=== PATIENT | female | born 1935 | race Caucasian/White ===

== ENCOUNTER 2017-12-23 15:22 | Inpatient (IN) | payer OTHER ==
[~2017-12-23] VITALS: Ht 165.1 cm; Wt 68.0 kg
[~2017-12-23 15:22] MED LIST: ASA81 PO; GLIM2TAB2 PO; LEVO100T9 PO; METO50TA7 PO; PRAV20TA PO
[2017-12-23 15:26] VITALS: BP_SYST 145
[2017-12-23 16:15] LABS: BASOPHILS # (AUTO) 0.1 K/uL (0.0-0.2); BASOPHILS % (AUTO) 0.7 % (0.0-2.0); EOSINOPHILS # (AUTO) 0.5 K/uL (0.0-0.4); HEMATOCRIT 37.8 % (36-48); HEMOGLOBIN 12.6 g/dL (12.0-16.0); LYMPHOCYTES # (AUTO) 2.6 K/uL (1.0-5.5); LYMPHOCYTES % (AUTO) 28.7 % (20.5-51.5); MEAN CORPUSCULAR HEMOGLOBIN 32 pg (27-31); MEAN CORPUSCULAR HGB CONC 33 % (32-36); MEAN CORPUSCULAR VOLUME 96 fL (79.0-98.0); MONOCYTES # (AUTO) 0.9 K/uL (0.0-1.0); MONOCYTES % (AUTO) 9.5 % (1.7-9.3); NEUTROPHILS % (AUTO) 56.1 % (40.0-70.0); PLATELET COUNT (AUTO) 251 K/uL (130-430); RED BLOOD CELL COUNT(AUTO) 3.95 MIL/uL (4.2-6.2); RED CELL DISTRIBUTION WIDTH 12.3 % (9.0-15.0); WHITE BLOOD COUNT (AUTO) 9.1 K/uL (4.8-10.8)
[2017-12-23 16:23] LABS: ANION GAP 7 (5-15); CALCIUM 8.9 mg/dL (8.4-11.0); CHLORIDE 109 mmol/L (98-107); CREATININE 1.17 mg/dL (0.55-1.30); GLUCOSE 168 mg/dL (70-99); POTASSIUM 3.6 mmol/L (3.5-5.1); SODIUM SERUM 139 mmol/L (136-145); UREA NITROGEN, BLOOD 29 mg/dL (8-21)
[2017-12-23 16:26] LABS: PROTHROMBIN TIME 10.3 SECS (9.5-12.5)
[2017-12-23 16:28] LABS: ALANINE AMINOTRANSFERASE 23 U/L (12-78); ALBUMIN 3.7 g/dL (3.4-4.8); ASPARTATE AMINOTRANSFERASE 23 U/L (10-37); TOTAL BILIRUBIN 0.4 mg/dL (0.0-1.0)
[2017-12-23] MEDS ORDERED: ACETAMINOPHEN 325 MG TABLET PO PRN (18:45)
[2017-12-23] MEDS ORDERED: INSULIN ASPART 100 UNITS/ML, 10 ML VIAL (NovoLOG) SUBCUT PRN (18:45)
[2017-12-23] MEDS ORDERED: ONDANSETRON HCL 4 MG/2 ML VIAL IVP PRN (18:45)
[2017-12-23 19:15] VITALS: BP_SYST 151
[2017-12-23] MEDS ORDERED: SIMVASTATIN 40 MG TABLET PO SCH (21:00)
[2017-12-23] MEDS ORDERED: DOCUSATE SODIUM 100 MG CAPSULE PO SCH (21:00)
[2017-12-23 23:49] LABS: BILIRUBIN,URINE 1+ (NEGATIVE); BLOOD, URINE NEGATIVE (NEGATIVE); CLARITY/URINE SL HAZY (CLEAR); COLOR,URINE YELLOW (YELLOW); GLUCOSE,URINE NEGATIVE (NEGATIVE); KETONES,URINE TRACE (NEGATIVE); LEUKOCYTE ESTERASE ,URINE NEGATIVE (NEGATIVE); NITRITE, URINE NEGATIVE (NEGATIVE); PROTEIN URINE 1+ (NEGATIVE); UROBILINOGEN,URINE 0.2 (0.2-1.0)
[2017-12-23 23:58] LABS: BACTERIA,URINE FEW /HPF (None Seen); RBC,URINE 0-3 /HPF (0-3)
[2017-12-23 23:59] LABS: HYALINE CASTS, URINE 0-10 /LPF (None Seen); MUCUS,URINE 1+ /LPF (None Seen)
[2017-12-24 01:05] VITALS: BP_SYST 154
[2017-12-24 06:34] LABS: RED BLOOD CELL COUNT(AUTO) 3.84 MIL/uL (4.2-6.2)
[2017-12-24 06:35] LABS: BASOPHILS # (AUTO) 0.1 K/uL (0.0-0.2); BASOPHILS % (AUTO) 1.6 % (0.0-2.0); EOSINOPHILS # (AUTO) 0.4 K/uL (0.0-0.4); EOSINOPHILS % (AUTO) 5.5 % (0.0-4.0); HEMATOCRIT 36.9 % (36-48); HEMOGLOBIN 12.6 g/dL (12.0-16.0); LYMPHOCYTES # (AUTO) 3.3 K/uL (1.0-5.5); MEAN CORPUSCULAR HEMOGLOBIN 33 pg (27-31); MEAN CORPUSCULAR HGB CONC 34 % (32-36); MEAN CORPUSCULAR VOLUME 96 fL (79.0-98.0); MONOCYTES # (AUTO) 0.9 K/uL (0.0-1.0); NEUTROPHILS # (AUTO) 3.3 K/uL (1.8-7.7); NEUTROPHILS % (AUTO) 40.9 % (40.0-70.0); PLATELET COUNT (AUTO) 226 K/uL (130-430); RED CELL DISTRIBUTION WIDTH 12.5 % (9.0-15.0)
[2017-12-24 06:48] LABS: ANION GAP 6 (5-15); CALCIUM 8.7 mg/dL (8.4-11.0); CHLORIDE 110 mmol/L (98-107); CREATININE 0.98 mg/dL (0.55-1.30); GLUCOSE 84 mg/dL (70-99); POTASSIUM 3.6 mmol/L (3.5-5.1); SODIUM SERUM 143 mmol/L (136-145); UREA NITROGEN, BLOOD 28 mg/dL (8-21)
[2017-12-24 06:53] LABS: ALANINE AMINOTRANSFERASE 21 U/L (12-78); ALBUMIN 3.3 g/dL (3.4-4.8); ASPARTATE AMINOTRANSFERASE 24 U/L (10-37); CHOLESTEROL 184 mg/dL (<200); HDL CHOLESTEROL 76 mg/dL (>55); LDL CHOLESTEROL 96 mg/dL (<100); TOTAL BILIRUBIN 0.4 mg/dL (0.0-1.0); TRIGLYCERIDES 106 mg/dL (30-150)
[2017-12-24 08:00] VITALS: BP_SYST 149
[2017-12-24] MEDS ORDERED: ASPIRIN 81 MG TAB.CHEW PO SCH (09:00)
[2017-12-24] MEDS ORDERED: LEVOTHYROXINE SODIUM 0.1 MG TABLET PO SCH (09:00)
[2017-12-24] MEDS ORDERED: GLIMEPIRIDE 2 MG TABLET PO SCH (09:00)
[2017-12-24] MEDS ORDERED: METOPROLOL SUCCINATE 50 MG TAB.SR.24H (TOPROL XL) PO SCH (09:00)
[2017-12-24 12:40] VITALS: BP_SYST 134
[2017-12-24 16:31] VITALS: BP_SYST 129
[2017-12-24 16:52] VITALS: BP_SYST 129
[2017-12-25] MEDS ORDERED: LEVOTHYROXINE SODIUM 0.1 MG TABLET PO SCH (07:00)
== END 2017-12-24 17:20 | disposition home or self-care (01) | DRG 69 ==
LOC: SED 15:22 → STU 18:15
PROVIDERS: ADMIT Internal Medicine; ATTEND Internal Medicine
DX: G45.9 Transient cerebral ischemic attack, unspecified (principal); E11.9 Type 2 diabetes mellitus without complications; E78.5 Hyperlipidemia, unspecified; I10 Essential (primary) hypertension; E03.9 Hypothyroidism, unspecified
CPT/HCPCS: 36415; 70450-TC; 71045; 80053; 80061; 81000-TC; 83036; 84484; 85025; 85610-TC; 85730-TC; 93005; 93306; 97116-GP; 97530-GP; 99285

== ENCOUNTER 2018-09-16 10:12 | Emergency (ER) | payer OTHER ==
[~2018-09-16] VITALS: Ht 165.1 cm; Wt 67.6 kg
[2018-09-16 10:20] VITALS: BP_SYST 151
[2018-09-16] MEDS ORDERED: NACL 0.9% 1,000 ML IV ONE (10:42)
[2018-09-16] MEDS ORDERED: PANTOPRAZOLE SODIUM 40 MG/VIAL (PROTONIX) IVP ONE (11:00)
[2018-09-16 11:14] LABS: BILIRUBIN,URINE 1+ (NEGATIVE); BLOOD, URINE 2+ (NEGATIVE); CLARITY/URINE HAZY (CLEAR); COLOR,URINE YELLOW (YELLOW); GLUCOSE,URINE 1+ (NEGATIVE); KETONES,URINE TRACE (NEGATIVE); LEUKOCYTE ESTERASE ,URINE 2+ (NEGATIVE); NITRITE, URINE NEGATIVE (NEGATIVE); PROTEIN URINE 1+ (NEGATIVE); UROBILINOGEN,URINE 0.2 (0.2-1.0)
[2018-09-16 11:17] LABS: BASOPHILS % (AUTO) 0.9 % (0.0-2.0); EOSINOPHILS # (AUTO) 0.2 K/uL (0.0-0.4); EOSINOPHILS % (AUTO) 2.3 % (0.0-4.0); HEMATOCRIT 41.1 % (36-48); HEMOGLOBIN 13.5 g/dL (12.0-16.0); LYMPHOCYTES # (AUTO) 2.1 K/uL (1.0-5.5); LYMPHOCYTES % (AUTO) 23.4 % (20.5-51.5); MEAN CORPUSCULAR HEMOGLOBIN 32 pg (27-31); MEAN CORPUSCULAR HGB CONC 33 % (32-36); MEAN CORPUSCULAR VOLUME 97 fL (79.0-98.0); MONOCYTES # (AUTO) 0.9 K/uL (0.0-1.0); MONOCYTES % (AUTO) 9.9 % (1.7-9.3); NEUTROPHILS # (AUTO) 5.7 K/uL (1.8-7.7); NEUTROPHILS % (AUTO) 63.5 % (40.0-70.0); PLATELET COUNT (AUTO) 222 K/uL (130-430); RED BLOOD CELL COUNT(AUTO) 4.25 MIL/uL (4.2-6.2); RED CELL DISTRIBUTION WIDTH 13.1 % (9.0-15.0); WHITE BLOOD COUNT (AUTO) 8.9 K/uL (4.8-10.8)
[2018-09-16 11:18] LABS: BASOPHILS # (AUTO) 0.1 K/uL (0.0-0.2)
[2018-09-16 11:24] LABS: BACTERIA,URINE FEW /HPF (None Seen)
[2018-09-16 11:28] LABS: ANION GAP 10 (5-15); CALCIUM 9.8 mg/dL (8.4-11.0); CHLORIDE 100 mmol/L (98-107); CREATININE 1.12 mg/dL (0.55-1.30); GLUCOSE 302 mg/dL (70-99); POTASSIUM 4.1 mmol/L (3.5-5.1); SODIUM SERUM 136 mmol/L (136-145); UREA NITROGEN, BLOOD 19 mg/dL (8-21)
[2018-09-16 11:29] LABS: PROTHROMBIN TIME 10.7 SECS (9.5-12.5)
[2018-09-16] MEDS ORDERED: cefTRIAXone 1 GM in D5W 50 ML IV ONE (11:30)
[2018-09-16 11:32] LABS: ALANINE AMINOTRANSFERASE 26 U/L (12-78); ALBUMIN 3.6 g/dL (3.4-4.8); AMYLASE 55 U/L (0-100); ASPARTATE AMINOTRANSFERASE 24 U/L (10-37); LIPASE 76 U/L (73-393); TOTAL BILIRUBIN 0.4 mg/dL (0.0-1.0)
[2018-09-16] MEDS ORDERED: MAG HYDROX/AL HYDROX/SIMETH 30 ML, LIDOCAINE VISCOUS 2% 15ML (PO) 10 ML, BELLADONNA ALK... PO ONE ×3 (12:00)
[2018-09-16] MEDS ORDERED: cefTRIAXone 1 GM IVPB PREMIX 50 ML IV ONE (12:26)
[2018-09-16 14:21] VITALS: BP_SYST 144
== END 2018-09-16 14:21 | disposition home or self-care (01) ==
LOC: SED 10:12
DX: K29.70 Gastritis, unspecified, without bleeding (principal); N39.0 Urinary tract infection, site not specified; R03.0 Elevated blood-pressure reading, without diagnosis of hypertension; K21.9 Gastro-esophageal reflux disease without esophagitis; Z90.49 Acquired absence of other specified parts of digestive tract; Z79.82 Long term (current) use of aspirin; Z79.899 Other long term (current) drug therapy
CPT/HCPCS: 36415; 74176; 80053; 81000; 82150; 83690; 85025; 85610; 87086; 96361; 96365; 96375; 99284; C9113; J0696; J7030

== ENCOUNTER 2019-04-24 14:48 | Emergency (ER) | payer OTHER ==
[~2019-04-24] VITALS: Ht 165.1 cm; Wt 64.9 kg
[2019-04-24 15:07] VITALS: BP_SYST 112
== END 2019-04-24 16:20 | disposition left against medical advice (07) ==
LOC: SED 14:48
DX: R20.0 Anesthesia of skin (principal); Z53.21 Procedure and treatment not carried out due to patient leaving prior to being seen by health care provider
CPT/HCPCS: 70450-TC; 93005; 99281

== ENCOUNTER 2019-05-21 14:42 | Inpatient (IN) | payer OTHER ==
[~2019-05-21] VITALS: Ht 165.1 cm; Wt 70.8 kg
[2019-05-21 14:45] VITALS: BP_SYST 98
--- NOTE | 2019-05-21 15:00 | NUR ---
Patient to ER bed 4 to gown for evaluation. Side rails up. Report given to Katelin JAIME.
[2019-05-21] MEDS ORDERED: IPRATROPIUM/ALBUTEROL SULFATE 3 ML AMPUL.NEB (DUONEB) INH ONE (15:30)
[2019-05-21] MEDS ORDERED: NACL 0.9% 1,000 ML IV ONE ×2 (15:30→16:15)
--- NOTE | 2019-05-21 15:48 | NUR ---
at the [facility] bib her daughter. Pt just returned from a cruise and has been experiencing increaseing cough with fever. Current temp is 98.9. No other c/o at the moment
[2019-05-21 15:54] LABS: BASOPHILS # (AUTO) 0.2 K/uL (0.0-0.2); BASOPHILS % (AUTO) 0.8 % (0.0-2.0); EOSINOPHILS # (AUTO) 0.2 K/uL (0.0-0.4); HEMATOCRIT 37.6 % (36-48); HEMOGLOBIN 12.3 g/dL (12.0-16.0); LYMPHOCYTES # (AUTO) 2.4 K/uL (1.0-5.5); LYMPHOCYTES % (AUTO) 11.6 % (20.5-51.5); MEAN CORPUSCULAR HEMOGLOBIN 32 pg (27-31); MEAN CORPUSCULAR HGB CONC 33 % (32-36); MEAN CORPUSCULAR VOLUME 97 fL (79.0-98.0); MONOCYTES # (AUTO) 1.8 K/uL (0.0-1.0); MONOCYTES % (AUTO) 8.8 % (1.7-9.3); NEUTROPHILS # (AUTO) 15.9 K/uL (1.8-7.7); PLATELET COUNT (AUTO) 340 K/uL (130-430); RED BLOOD CELL COUNT(AUTO) 3.86 MIL/uL (4.2-6.2); RED CELL DISTRIBUTION WIDTH 14.3 % (9.0-15.0); WHITE BLOOD COUNT (AUTO) 20.4 K/uL (4.8-10.8)
[2019-05-21 16:00] LABS: ANION GAP 13 (5-15); CALCIUM 8.8 mg/dL (8.4-11.0); CHLORIDE 100 mmol/L (98-107); CREATININE 1.53 mg/dL (0.55-1.30); POTASSIUM 4.4 mmol/L (3.5-5.1); SODIUM SERUM 135 mmol/L (136-145); UREA NITROGEN, BLOOD 27 mg/dL (8-21)
--- NOTE | 2019-05-21 16:00 | NUR ---
# 20 gauge angiocath placed to left hand. Use of asceptic technique. Opsite placed over site. Blood return noted. Blood for lab drawn from site. Flushed with 10 cc of normal saline. No evidence of infiltration noted. Patient tolerated well.
[2019-05-21 16:07] LABS: GLUCOSE 425 mg/dL (70-99)
[2019-05-21] MEDS ORDERED: INSULIN REGULAR, HUMAN 10 UNITS/0.1 ML INJ IVP ONE (16:15)
--- NOTE | 2019-05-21 16:20 | NUR ---
UA obtained via straight cath and sent to lab.
[2019-05-21 16:35] LABS: TOTAL BILIRUBIN 0.7 mg/dL (0.0-1.0)
[2019-05-21 16:36] LABS: ALANINE AMINOTRANSFERASE 24 U/L (12-78); ALBUMIN 2.9 g/dL (3.4-4.8); ASPARTATE AMINOTRANSFERASE 28 U/L (10-37)
[2019-05-21 16:37] LABS: NEUTROPHILS % (AUTO) 77.8 % (40.0-70.0)
[2019-05-21 16:45] LABS: BILIRUBIN,URINE 1+ (NEGATIVE); BLOOD, URINE NEGATIVE (NEGATIVE); COLOR,URINE YELLOW (YELLOW); GLUCOSE,URINE 1+ (NEGATIVE); KETONES,URINE NEGATIVE (NEGATIVE); LEUKOCYTE ESTERASE ,URINE NEGATIVE (NEGATIVE); NITRITE, URINE NEGATIVE (NEGATIVE); PROTEIN URINE NEGATIVE (NEGATIVE)
[2019-05-21] MEDS ORDERED: VANCOMYCIN HCL 1,000 MG in NS 250 ML IV ONE (16:45)
[2019-05-21] MEDS ORDERED: PIPERACILLIN/TAZO 3.375 GM in NS 50 ML IV ONE (16:45)
[2019-05-21 16:46] LABS: CLARITY/URINE SLIGHTLY HAZY (CLEAR)
[2019-05-21 16:55] LABS: BACTERIA,URINE FEW /HPF (None Seen); HYALINE CASTS, URINE 0-10 /LPF (None Seen); MUCUS,URINE 1+ /LPF (None Seen); RBC,URINE 0-3 /HPF (0-3); WBC,URINE 0-3 /HPF (0-3)
[2019-05-21] MEDS ORDERED: PIPERACILLIN/TAZOBACTAM 3.375 GM/VIAL (ZOSYN) IV ONE (17:08)
[2019-05-21] MEDS ORDERED: VANCOMYCIN HCL 1000 MG/VIAL IV ONE (17:08)
--- NOTE | 2019-05-21 17:15 | NUR ---
2nd Liter of NS bolus infusing. Zosyn currently infusing per MD order.
--- NOTE | 2019-05-21 18:29 | NUR ---
pt will be admitted under the care of Dr. Jj. Orders received
[2019-05-21] MEDS ORDERED: PANT40TA4 PO (18:32)
[2019-05-21] MEDS ORDERED: METO25TA3 PO (18:35)
[2019-05-21] MEDS ORDERED: SITA100T11 PO (18:35)
[2019-05-21] MEDS ORDERED: METO-540 (18:35)
[2019-05-21] MEDS ORDERED: VITD2000 PO ×2 (18:36)
--- NOTE | 2019-05-21 18:37 | NUR ---
Medication reconciliation completed with information provided by patients daughter . Any prior medication reconciliation on file was reviewed and corrected.
[2019-05-21] MEDS ORDERED: HYDROcodone/ACETAMIN 10-325 MG TAB PO PRN (18:45)
[2019-05-21] MEDS ORDERED: ACETAMINOPHEN 325 MG TABLET PO PRN (18:45)
[2019-05-21] MEDS ORDERED: ONDANSETRON HCL 4 MG/2 ML VIAL IVP PRN (18:45)
[2019-05-21] MEDS ORDERED: ALBUTEROL SULFATE 0.083% 2.5 MG/3 ML VIAL.NEB INH PRN (18:45)
[2019-05-21] MEDS ORDERED: HYDROcodone/ACETAMIN 5-325 MG TAB (NORCO/ VICODIN) PO PRN (18:45)
[2019-05-21 18:50] VITALS: BP_SYST 148
--- NOTE | 2019-05-21 18:50 | NUR ---
ADMISSION NOTE Received patient from ER via juan pablo, received report from RENATA JAIME. Patient admitted with diagnosis of PNEUMONIA. Patient oriented to hospital routine, call light, toileting and safety-patient verbalized understanding.
[2019-05-21 18:59] VITALS: BP_SYST 139
[2019-05-21] MEDS ORDERED: D5W 1,000 ML IV PRN (19:00)
[2019-05-21] MEDS ORDERED: GLUCOSE 15 GM GEL (in 37.5 GM TUBE) PO PRN (19:00)
[2019-05-21] MEDS ORDERED: DEXTROSE 50%-WATER 50 ML DISP.SYRIN IVP PRN (19:00)
--- NOTE | 2019-05-21 19:00 | NUR ---
Patient will be admitted to care of Dr. Jj. Admitted to Med Surg unit. Will go to room 106-b. Belongings list completed. Complete and up to date summary report printed. Bedside report given to Foster. IV is on the left hand 20g patent and infusing well.
--- NOTE | 2019-05-21 20:00 | NUR ---
ADMISSION NOTE Received patient from ER via gurney. Patient admitted with diagnosis of . Patient is awake, alert, oriented 4 . Patient oriented to hospital room, call light, toileting, pain management and safety-teach back done. Patient informed that Noel will be your nurse and that their room number is 106 B . Personal belongings checked and Belongings List documented. Call light within reach.
[2019-05-21 21:16] VITALS: BP_SYST 141
[2019-05-21] MEDS: cefTRIAXone 1 GM IVPB PREMIX 50 ML IV SCH (22:02)
[2019-05-21] MEDS: AZITHROMYCIN 500 MG in NS 250 ML IV SCH (22:02)
[2019-05-21] MEDS: INSULIN LISPRO SLIDING SCALE 100 UNITS/ML VIAL (humaLOG) SUBCUT PRN (22:05)
[2019-05-22] VITALS: BP_SYST 137
--- NOTE | 2019-05-22 | NUR ---
ZITHROMAX 500 MG IVPB administer as ordered no s/sx of adverse reaction skin dry warm .
[2019-05-22 01:00] VITALS: BP_SYST 135
--- NOTE | 2019-05-22 03:19 | NUR ---
Hourly Rounding patient Resting verbally Responsive call holland with patient bed alarm is on .
[2019-05-22] MEDS: LEVOTHYROXINE SODIUM 0.1 MG TABLET PO SCH (06:35)
[2019-05-22] MEDS: GLIMEPIRIDE 2 MG TABLET PO SCH (06:35)
[2019-05-22] MEDS: guaiFENesin/DEXTROMETHORPHAN 10 ML UDC PO PRN ×3 (06:36→23:08)
[2019-05-22 07:28] LABS: BASOPHILS # (AUTO) 0.2 K/uL (0.0-0.2); BASOPHILS % (AUTO) 1.1 % (0.0-2.0); EOSINOPHILS # (AUTO) 0.4 K/uL (0.0-0.4); EOSINOPHILS % (AUTO) 2.5 % (0.0-4.0); HEMATOCRIT 33.4 % (36-48); HEMOGLOBIN 11.1 g/dL (12.0-16.0); LYMPHOCYTES # (AUTO) 2.8 K/uL (1.0-5.5); LYMPHOCYTES % (AUTO) 18.7 % (20.5-51.5); MEAN CORPUSCULAR HEMOGLOBIN 32 pg (27-31); MEAN CORPUSCULAR HGB CONC 33 % (32-36); MEAN CORPUSCULAR VOLUME 96 fL (79.0-98.0); MONOCYTES # (AUTO) 1.5 K/uL (0.0-1.0); MONOCYTES % (AUTO) 10.1 % (1.7-9.3); NEUTROPHILS # (AUTO) 10.1 K/uL (1.8-7.7); NEUTROPHILS % (AUTO) 67.6 % (40.0-70.0); PLATELET COUNT (AUTO) 268 K/uL (130-430); RED BLOOD CELL COUNT(AUTO) 3.49 MIL/uL (4.2-6.2); RED CELL DISTRIBUTION WIDTH 13.8 % (9.0-15.0); WHITE BLOOD COUNT (AUTO) 14.9 K/uL (4.8-10.8)
[2019-05-22 07:56] LABS: ALANINE AMINOTRANSFERASE 22 U/L (12-78); ALBUMIN 2.4 g/dL (3.4-4.8); ANION GAP 8 (5-15); ASPARTATE AMINOTRANSFERASE 17 U/L (10-37); CALCIUM 7.8 mg/dL (8.4-11.0); CHLORIDE 110 mmol/L (98-107); CREATININE 0.79 mg/dL (0.55-1.30); GLUCOSE 104 mg/dL (70-99); POTASSIUM 3.2 mmol/L (3.5-5.1); SODIUM SERUM 145 mmol/L (136-145); TOTAL BILIRUBIN 0.5 mg/dL (0.0-1.0); UREA NITROGEN, BLOOD 14 mg/dL (8-21)
[2019-05-22 08:00] VITALS: BP_SYST 147
[2019-05-22] MEDS ORDERED: PRAVASTATIN SODIUM 20 MG TABLET (PRAVACHOL) PO SCH (09:00)
--- NOTE | 2019-05-22 09:15 | NUR ---
CONSULT PULMO. DR. DEBO POTTS MD IS IN ICU
[2019-05-22] MEDS: PANTOPRAZOLE SODIUM 40 MG TAB PO SCH (09:22)
[2019-05-22] MEDS: METOPROLOL SUCCINATE 25 MG TAB.SR.24H (TOPROL XL) PO SCH (09:22)
[2019-05-22] MEDS: ATORVASTATIN 10 MG TABLET PO SCH (09:23)
[2019-05-22] MEDS: ASPIRIN 81 MG TAB.CHEW PO SCH (09:23)
[2019-05-22] MEDS ORDERED: POTASSIUM CHLORIDE 20 MEQ TAB.PRT.SR PO ONE (10:45)
[2019-05-22] MEDS: INSULIN LISPRO SLIDING SCALE 100 UNITS/ML VIAL (humaLOG) SUBCUT PRN (18:38)
[2019-05-22] MEDS: cefTRIAXone 1 GM IVPB PREMIX 50 ML IV SCH (21:09)
[2019-05-22 21:24] VITALS: BP_SYST 142
[2019-05-22] MEDS: AZITHROMYCIN 500 MG in NS 250 ML IV SCH (21:52)
[2019-05-23 00:40] VITALS: BP_SYST 145
[2019-05-23] MEDS: GLIMEPIRIDE 2 MG TABLET PO SCH (04:58)
[2019-05-23] MEDS: LEVOTHYROXINE SODIUM 0.1 MG TABLET PO SCH (04:58)
[2019-05-23 06:31] LABS: ANION GAP 8 (5-15); CALCIUM 7.6 mg/dL (8.4-11.0); CHLORIDE 103 mmol/L (98-107); CREATININE 0.56 mg/dL (0.55-1.30); GLUCOSE 122 mg/dL (70-99); POTASSIUM 3.4 mmol/L (3.5-5.1); SODIUM SERUM 136 mmol/L (136-145); UREA NITROGEN, BLOOD 10 mg/dL (8-21)
[2019-05-23 07:14] LABS: BASOPHILS # (AUTO) 0.1 K/uL (0.0-0.2); BASOPHILS % (AUTO) 0.9 % (0.0-2.0); EOSINOPHILS # (AUTO) 0.3 K/uL (0.0-0.4); EOSINOPHILS % (AUTO) 2.5 % (0.0-4.0); HEMATOCRIT 32.1 % (36-48); HEMOGLOBIN 10.6 g/dL (12.0-16.0); LYMPHOCYTES # (AUTO) 2.7 K/uL (1.0-5.5); LYMPHOCYTES % (AUTO) 22.1 % (20.5-51.5); MEAN CORPUSCULAR HEMOGLOBIN 32 pg (27-31); MEAN CORPUSCULAR HGB CONC 33 % (32-36); MEAN CORPUSCULAR VOLUME 96 fL (79.0-98.0); MONOCYTES # (AUTO) 1.6 K/uL (0.0-1.0); MONOCYTES % (AUTO) 13.3 % (1.7-9.3); NEUTROPHILS # (AUTO) 7.5 K/uL (1.8-7.7); NEUTROPHILS % (AUTO) 61.2 % (40.0-70.0); PLATELET COUNT (AUTO) 282 K/uL (130-430); RED BLOOD CELL COUNT(AUTO) 3.36 MIL/uL (4.2-6.2); WHITE BLOOD COUNT (AUTO) 12.2 K/uL (4.8-10.8)
--- NOTE | 2019-05-23 07:37 | NUR ---
Endorsement to Foster Graff, registered nurse for day team. Donavan Ruiz RN
[2019-05-23 07:55] VITALS: BP_SYST 155
--- NOTE | 2019-05-23 07:55 | NUR ---
OPENING NOTE PATIENT RESTING IN BED, A/OX4, DENIES PAIN, ASSESSMENT COMPLETE, IV LINE IS PATENT AND INFUSING WELL, EDUCATED [employer] INSTRUCTOR LIGHT SYSTEM AND PLAN OF CARE, SHE VERBALIZED UNDERSTANDING, BED IN LOWEST POSITION, TWO SIDE RAILS UP, BED ALARM ON, CALL LIGHT WITHIN REACH, BED CLOSE TO NURSING STATION, FALL AND ASPIRATION PRECAUTIONS IN PLACE.
[2019-05-23] MEDS: METOPROLOL SUCCINATE 25 MG TAB.SR.24H (TOPROL XL) PO SCH (09:05)
[2019-05-23] MEDS: PANTOPRAZOLE SODIUM 40 MG TAB PO SCH (09:05)
[2019-05-23] MEDS: ATORVASTATIN 10 MG TABLET PO SCH (09:05)
[2019-05-23] MEDS: ASPIRIN 81 MG TAB.CHEW PO SCH (09:06)
--- NOTE | 2019-05-23 09:07 | NUR ---
MEDICATION PATIENT RESTING IN BED, AWAKE, EDUCATED ON MEDICATIONS USES AND POTENTIAL SIDE EFFECTS, SHE VERBALIZED UNDERSTANDING AND TOLERATED WELL, CONTINUING TO MONITOR, BED IN LOWEST POSITION, TWO SIDE RAILS UP, CALL LIGHT WITHIN REACH, FALL AND ASPIRATION PRECAUTIONS IN PLACE.
[2019-05-23] MEDS ORDERED: POTASSIUM CHLORIDE 20 MEQ TAB.PRT.SR PO ONE (11:15)
[2019-05-23] MEDS: INSULIN LISPRO SLIDING SCALE 100 UNITS/ML VIAL (humaLOG) SUBCUT PRN ×3 (11:26→20:53)
--- NOTE | 2019-05-23 11:30 | NUR ---
RN ROUNDS/BLOOD GLUCOSE PATIENT RESTING IN BED, DENIES PAIN, DENIES SHORTNESS OF BREATH, BLOOD GLUCOSE CHECKED, EDUCATED ON NEED FOR INSULIN USES AND POTENTIAL SIDE EFFECTS, INSULIN COVERAGE PER MD ORDERS, NO OTHER NEEDS AT THIS TIME, CONTINUING TO MONITOR, BED IN LOWEST POSITION, TWO SIDE RAILS UP, CALL LIGHT WITHIN REACH, FALL AND ASPIRATION PRECAUTIONS IN PLACE.
--- NOTE | 2019-05-23 13:34 | NUR ---
PATIENT OFF THE UNIT TO CT SCAN, STABLE CONDITION.
--- NOTE | 2019-05-23 13:55 | NUR ---
PATIENT BACK ON THE UNIT STABLE CONDITION.
--- NOTE | 2019-05-23 14:20 | NUR ---
MEDICATION PATIENT RESTING IN BED, EDUCATED ON POTASSIUM REPLACEMENT, USES AND POTENTIAL SIDE EFFECTS, SHE VERBALIZED UNDERSTANDING AND TOLERATED WELL, HER FAMILY IS AT BEDSIDE, CONTINUING TO MONITOR, BED IN LOWEST POSITION, TWO SIDE RAILS UP, CALL LIGHT WITHIN REACH, FALL AND ASPIRATION PRECAUTIONS IN PLACE.
--- NOTE | 2019-05-23 16:21 | NUR ---
PAGED DR. EDMONDSON REGARDING CT SCAN RESULTS. Addendum: 05/23/19 at 1629 by Foster Cutler RN INFORMED OF CT SCAN RESULTS - NO NEW ORDERS AT THIS TIME.
--- NOTE | 2019-05-23 16:29 | NUR ---
RN ROUNDS PATIENT RESTING IN BED, AWAKE, FAMILY AT BEDSIDE, PATIENT DENIES PAIN, DENIES SHORTNESS OF BREATH, CONTINUING TO MONITOR, BED IN LOWEST POSITION, TWO SIDE RAILS UP, CALL LIGHT WITHIN REACH, FALL AND ASPIRATION PRECAUTIONS IN PLACE.
[2019-05-23 16:30] VITALS: BP_SYST 135
--- NOTE | 2019-05-23 17:10 | NUR ---
Dietitian Recommendations * Recommend cardiac, CCHO diet. LP, RD Please refer to Nutrition Assessment for details. Signed: 05/23/19 at 1711 by Haven GUTIÉRREZ <Co-Signature Required> Co-Signed: 05/23/19 at [address] Addendum: 05/23/19 at 1712 by Haven GUTIÉRREZ Amended: Links added.
--- NOTE | 2019-05-23 18:28 | NUR ---
CLOSING NOTE PATIENT RESTING IN BED, AWAKE, DENIES PAIN, DENIES SHORTNESS OF BREATH, ALL NEEDS MET, WILL ENDORSE REPORT TO NOC SHIFT NURSE, BED IN LOWEST POSITION, TWO SIDE RAILS UP, CALL LIGHT WITHIN REACH, FALL AND ASPIRATION PRECAUTIONS IN PLACE.
--- NOTE | 2019-05-23 19:18 | NUR ---
OPENING NOTES PT AND ENDORSEMENT RECEIVED FROM DAY SHIFT NURSE. PT IS RESTING IN BED WITH BOTH EYES CLOSED, WITH VISIBLE CHEST RISE AND FALL WITH NON-LABORED BREATHING NOTED. PT ON O2 INHALATION AT 2L VIA NASAL CANNULA. PT ON SALINE LOCK LEFT FA G20. NO COMPLAINS OF PAIN OR DISCOMFORT AT THIS TIME. NO SIGNS OF ACUTE DISTRESS OR SOB NOTED. SAFETY PRECAUTIONS IN PLACE WITH 3 SIDE RAILS UP, WHEELS LOCKED, AND BED IN LOWEST LEVEL. CALL LIGHT WITH PT. WILL CONTINUE TO MONITOR.
[2019-05-23 20:38] VITALS: BP_SYST 158
[2019-05-23] MEDS: AZITHROMYCIN 500 MG in NS 250 ML IV SCH (20:41)
[2019-05-23] MEDS: cefTRIAXone 1 GM IVPB PREMIX 50 ML IV SCH (20:41)
[2019-05-23] MEDS: guaiFENesin/DEXTROMETHORPHAN 10 ML UDC PO PRN (20:41)
--- NOTE | 2019-05-23 20:51 | NUR ---
MED PASS ALL IVPB DUE MEDS GIVEN AND PT TOLERATING WELL. NO COMPLAINS OF PAIN AND NO SIGNS OF ACUTE DISTRESS NOTED. ENCOURAGED TO USE CALL LIGHT WHEN NEEDED. SAFETY PRECAUTIONS IN PLACE AND CALL LIGHT WITH PT. WILL CONTINUE TO MONITOR.
--- NOTE | 2019-05-23 22:40 | NUR ---
IV INSERTION PT'S IV WAS INFILTRATED, NEW IV INSERTED ON RIGHT FOREARM G22, WITH GOOD BLOOD RETURN AND FLUSHABLE WITH SALINE. RECONNECTED REMAINING IVPB AND IS INFUSING WELL. PT TOLERATED WELL. NO SIGNS OF ACUTE DISTRESS NOTED. SAFETY PRECAUTIONS IN PLACE AND CALL LIGHT WITH PT. WILL CONTINUE TO MONITOR.
[2019-05-24 01:22] VITALS: BP_SYST 144
--- NOTE | 2019-05-24 01:36 | NUR ---
ROUNDS PT IS RESTING IN BED WITH BOTH EYES CLOSED, WITH VISIBLE CHEST RISE AND FALL WITH NON-LABORED BREATHING NOTED. NO COMPLAINS OF PAIN AND NO SIGNS OF ACUTE DISTRESS NOTED. SAFETY PRECAUTIONS IN PLACE AND CALL LIGHT WITH PT. WILL CONTINUE TO MONITOR.
--- NOTE | 2019-05-24 04:03 | NUR ---
ROUNDS PT IS RESTING IN BED WITH BOTH EYES CLOSED, WITH VISIBLE CHEST RISE AND FALL WITH NON-LABORED BREATHING NOTED. PT IS EASILY AROUSABLE. NO SIGNS OF ACUTE DISTRESS OR SOB NOTED. NO NEEDS AT THIS TIME. SAFETY PRECAUTIONS IN PLACE AND CALL LIGHT WITH PT. WILL CONTINUE TO MONITOR.
[2019-06-07 16:56] LABS: ANION GAP 6 (5-15); CALCIUM 7.7 mg/dL (8.4-11.0); CHLORIDE 102 mmol/L (98-107); GLUCOSE 117 mg/dL (70-99); POTASSIUM 3.8 mmol/L (3.5-5.1); SODIUM SERUM 135 mmol/L (136-145); UREA NITROGEN, BLOOD 8 mg/dL (8-21)
[2019-06-07 17:12] LABS: HEMATOCRIT 34.6 % (36-48); HEMOGLOBIN 11.4 g/dL (12.0-16.0); MEAN CORPUSCULAR HEMOGLOBIN 32 pg (27-31); MEAN CORPUSCULAR HGB CONC 33 % (32-36); MEAN CORPUSCULAR VOLUME 96 fL (79.0-98.0); PLATELET COUNT (AUTO) 325 K/uL (130-430); RED BLOOD CELL COUNT(AUTO) 3.61 MIL/uL (4.2-6.2); RED CELL DISTRIBUTION WIDTH 14.1 % (9.0-15.0); WHITE BLOOD COUNT (AUTO) 10.8 K/uL (4.8-10.8)
[2019-06-07 17:13] LABS: BASOPHILS # (AUTO) 0.1 K/uL (0.0-0.2); BASOPHILS % (AUTO) 1.2 % (0.0-2.0); EOSINOPHILS # (AUTO) 0.4 K/uL (0.0-0.4); EOSINOPHILS % (AUTO) 3.6 % (0.0-4.0); LYMPHOCYTES # (AUTO) 1.9 K/uL (1.0-5.5); LYMPHOCYTES % (AUTO) 17.3 % (20.5-51.5); MONOCYTES # (AUTO) 1.3 K/uL (0.0-1.0); MONOCYTES % (AUTO) 11.8 % (1.7-9.3); NEUTROPHILS # (AUTO) 7.1 K/uL (1.8-7.7); NEUTROPHILS % (AUTO) 66.1 % (40.0-70.0)
== END 2019-05-25 15:50 | disposition home or self-care (01) | DRG 871 ==
LOC: SED 14:42 → EDBD 18:00 → STU 18:00 → SMU 05-22 10:31
PROVIDERS: ADMIT Internal Medicine Hospice and Palliative Medicine; ATTEND Internal Medicine Hospice and Palliative Medicine
DX: A41.9 Sepsis, unspecified organism (principal); J18.1 Lobar pneumonia, unspecified organism; E87.2 Acidosis; J98.11 Atelectasis; N17.9 Acute kidney failure, unspecified; N39.0 Urinary tract infection, site not specified; E11.65 Type 2 diabetes mellitus with hyperglycemia; I10 Essential (primary) hypertension; E03.9 Hypothyroidism, unspecified; E78.5 Hyperlipidemia, unspecified; E87.6 Hypokalemia; K44.9 Diaphragmatic hernia without obstruction or gangrene; K21.9 Gastro-esophageal reflux disease without esophagitis; Z82.49 Family history of ischemic heart disease and other diseases of the circulatory system; Z83.3 Family history of diabetes mellitus; Z95.0 Presence of cardiac pacemaker; Z79.82 Long term (current) use of aspirin
CPT/HCPCS: 36415; 36600; 71045; 71250-TC; 80048; 80053; 81000-TC; 82803-TC; 82962; 83605; 84484; 85025; 86710; 87040-TC; 87086; 93005; 93306; 94640; 96361; 96365; 96375; 97116-GP; 97161-GP; 97530-GP; 99291; G0378; J0456; J0696; J1815; J2543; J3370; J7040; J7050; J7620

== ENCOUNTER 2020-01-01 13:33 | Emergency (ER) | payer OTHER, SELFPAY ==
[~2020-01-01] VITALS: Ht 165.1 cm; Wt 68.0 kg
[~2020-01-01 13:33] MED LIST changes: +METO25TA3 PO; -METO50TA7 PO; +PANT40TA4 PO; +SITA100T11 PO; +VITD2000 PO
[2020-01-01 13:45] VITALS: BP_SYST 129
--- NOTE | 2020-01-01 13:50 | NUR ---
SENT TO [facility]
--- NOTE | 2020-01-01 17:00 | NUR ---
PLACED IN [facility], DR. PEREZ AT BEDSIDE
--- NOTE | 2020-01-01 17:05 | NUR ---
Patient given written and verbal discharge instructions and verbalizes understanding. ER MD discussed with patient the results and treatment provided. Patient in stable condition. ID arm band removed. Rx of FLEXIRYL, NAPROXN given. Patient educated on pain management and to follow up with PMD. Pain Scale 0/10 Opportunity for questions provided and answered. Medication side effect fact sheet provided.
[2020-01-01 17:08] VITALS: BP_SYST 137
== END 2020-01-01 17:05 | disposition home or self-care (01) ==
LOC: SED 13:33
DX: S39.012A Strain of muscle, fascia and tendon of lower back, initial encounter (principal); S29.012A Strain of muscle and tendon of back wall of thorax, initial encounter; E11.9 Type 2 diabetes mellitus without complications; K21.9 Gastro-esophageal reflux disease without esophagitis; I10 Essential (primary) hypertension; E07.9 Disorder of thyroid, unspecified; Z90.49 Acquired absence of other specified parts of digestive tract; Z79.899 Other long term (current) drug therapy; Z79.82 Long term (current) use of aspirin
CPT/HCPCS: 72072-TC; 72110; 99284

== ENCOUNTER 2020-06-01 16:01 | Emergency (ER) | payer OTHER, SELFPAY ==
[~2020-06-01] VITALS: Ht 165.1 cm; Wt 70.8 kg
[~2020-06-01 16:01] MED LIST changes: +GLIM2TAB PO; -GLIM2TAB2 PO; -PANT40TA4 PO; +PANT40TA45 PO
[2020-06-01 16:26] VITALS: BP_SYST 122
--- NOTE | 2020-06-01 16:31 | NUR ---
Patient triaged and placed in waiting room. VSS and patient appears in no acute distress at this time. Accompanied by daughter, awaiting available bed, and MD notified of need for MSE.
--- NOTE | 2020-06-01 16:32 | NUR ---
Patient came from home for evaluation of left rib pain after falling and landing on some furniture 3 days ago. Patient has no other complaints at this time.
--- NOTE | 2020-06-01 18:07 | NUR ---
ER Dr. Maynard in triage examining patient.
--- NOTE | 2020-06-01 18:25 | NUR ---
Patient given written and verbal discharge instructions and verbalizes understanding. ER MD discussed with patient the results and treatment provided. Patient in stable condition. ID arm band removed. Rx of MOTRIN, FLEXIRIL, TRAMADOL, AZITHROMYCIN given. Patient educated on pain management and to follow up with PMD. Pain Scale 0/10. Opportunity for questions provided and answered. Medication side effect fact sheet provided.
[2020-06-01 18:31] VITALS: BP_SYST 122
== END 2020-06-01 18:27 | disposition home or self-care (01) ==
LOC: SED 16:01
DX: S20.212A Contusion of left front wall of thorax, initial encounter (principal); I10 Essential (primary) hypertension; E11.9 Type 2 diabetes mellitus without complications; K21.9 Gastro-esophageal reflux disease without esophagitis; E07.9 Disorder of thyroid, unspecified; Z95.0 Presence of cardiac pacemaker; Z79.899 Other long term (current) drug therapy; Z79.82 Long term (current) use of aspirin; W18.39XA Other fall on same level, initial encounter; Y93.89 Activity, other specified; Y92.89 Other specified places as the place of occurrence of the external cause; Y99.8 Other external cause status
CPT/HCPCS: 71045; 71100; 99284

== ENCOUNTER 2022-03-19 12:58 | Emergency (ER) | payer OTHER ==
[~2022-03-19] VITALS: Ht 165.1 cm; Wt 72.6 kg
[2022-03-19 13:12] VITALS: BP_SYST 118
--- NOTE | 2022-03-19 13:32 | NUR ---
Patient brought in by son for headache, body ache, neck ache and achey feet. VSS are stable, son was worried about stroke, pt has no stroke symptoms at this time. COVID swab taken.
--- NOTE | 2022-03-19 13:35 | NUR ---
ER at bedside examining patient.
--- NOTE | 2022-03-19 13:36 | NUR ---
COVID SWAB SENT TO LAB 13:34.
--- NOTE | 2022-03-19 16:11 | NUR ---
Patient left without being seen. Addendum: 03/19/22 at 1611 by [id number] PT ARNDAL
== END 2022-03-19 15:55 | disposition left against medical advice (07) ==
LOC: SED 12:58
DX: R51.9 Headache, unspecified (principal); Z53.21 Procedure and treatment not carried out due to patient leaving prior to being seen by health care provider
CPT/HCPCS: 36415